=== PATIENT | female | born 1980 | race Caucasian/White ===

== ENCOUNTER 2023-11-29 06:17 | Inpatient (IN) | payer BC ==
[2023-11-29] MEDS ORDERED: OXYTOCIN 10 UNIT/ML 1 ML VIAL IM PRN (07:15)
[2023-11-29] MEDS ORDERED: TERBUTALINE 1 MG/ML VIAL SQ PRN (07:15)
[2023-11-29] MEDS ORDERED: miSOPROStoL 200 MCG TAB PO PRN (07:15)
[2023-11-29] MEDS ORDERED: OXYTOCIN 30 UNITS/500 ML NS 30 UNIT in SALINE 1 500ML.BAG IV SCH ×2 (07:15→14:15)
[2023-11-29] MEDS ORDERED: METHYLERGONOVINE 0.2 MG/ML 1 ML AMP IM PRN (07:15)
[2023-11-29] MEDS ORDERED: LIDOCAINE 0.5% (PF) 5 MG/ML (50 ML SDV) SQ PRN (07:15)
[2023-11-29] MEDS ORDERED: CARBOPROST TROMETHAMINE 250 MCG/ML 1 ML AMP IM PRN (07:15)
[2023-11-29] MEDS ORDERED: TRANEXAMIC 1,000 MG/100ML-NACL 1,000 MG in EMPTY BAG 1 BAG IV PRN (07:15)
[2023-11-29] MEDS: LACTATED RINGERS 1,000 ML IV SCH (07:36)
[2023-11-29 07:56] LABS: Basophils # (A) 0.1 k/uL (0-0.2); Basophils % (A) 1 %; Eosinophils % (A) 1 %; HCT 39.3 % (34.0-46.0); HGB 12.8 gm/dL (11.4-16.0); Lymphocytes # (A) 1.9 k/uL (1.0-4.8); Lymphocytes % (A) 22 %; MCH 31.3 pg (25.0-35.0); MCHC 32.7 g/dL (31.0-37.0); MCV 95.7 fL (80.0-100.0); Mean Platelet Volume 9.7; Monocytes # (A) 0.5 k/uL (0-1.0); Monocytes % (A) 6 %; Neutrophils % (A) 69 %; Platelet Count 155 k/uL (150-450); RBC 4.11 m/uL (3.80-5.40); RDW 13.2 % (11.5-15.5); WBC 8.7 k/uL (3.8-10.6)
[2023-11-29] MEDS: PENICILLIN G POTASSIUM 5,000,000 UNIT in DEXTROSE 5% IN WATER 100 ML IVPB STA (08:10)
[2023-11-29] MEDS ORDERED: NALBUPHINE 10 MG/ML (10 ML MDV) IV PRN (09:21)
--- NOTE | 2023-11-29 09:26 | P.HPOB ---
History of Present Illness H&P Date: 11/29/23 Chief Complaint: 38+ weeks, spontaneous rupture of membranes The patient is a 43-year-old 3 para 2-0-0-2 admitted at 38+ weeks as established by last menstrual period and confirmed by 7-week ultrasound. She is admitted with documented spontaneous rupture of membranes and early labor with all signs reassuring, category 1 heart rate tracing. Her has been essentially uncomplicated. She does fall into the category of advanced maternal age and had negative testing for trisomy. Blood pressures in the office recently have been slightly elevated but home blood pressures and blood pressures she takes at her workplace have been entirely within normal limits. Group B strep status is positive. Obstetrical history: 3 para 2-0-0-2 with 2 term vaginal deliveries without complications. Current statistics are listed in history of present illness. EDC of 12/11/2023 was established by last menstrual period and confirmed by 7-week ultrasound. Laboratory workup demonstrates a blood type of O+ with a negative antibody screen. Rubella status is immune. The remainder of the laboratory workup was within normal limits. Early Glucola was normal as was second trimester Glucola. Group B strep status is positive. Gynecologic history: Unremarkable with no history of any infections to include STDs. Review of Systems Review of systems is confined to history of present illness. Past Medical History Past Medical History: Asthma History of Any Multi-Drug Resistant Organisms: None Reported Past Surgical History: Adenoidectomy Additional Past Surgical History / Comment(s): Hernia repair in 1991. Past Anesthesia/Blood Transfusion Reactions: No Reported Reaction Smoking Status: Never smoker - Past Family History Father Family Medical History: No Reported History Medications and Allergies Home Medications Medication Instructions Recorded Confirmed Type Docusate [Colace] 2 tab PO DAILY 11/29/23 11/29/23 History Montelukast [Singulair] 0.5 tab PO DAILY 11/29/23 11/29/23 History Sertraline [Zoloft] 1 tab PO DAILY 11/29/23 11/29/23 History Allergies Allergy/AdvReac Type Severity Reaction Status Date / Time No Known Allergies Allergy Verified 11/29/23 06:52 Exam Vital Signs Temp Pulse Resp BP Pulse Ox 11/29/23 07:15 97.9 F 82 16 129/83 99 11/29/23 06:51 97.9 F 64 16 129/83 Intake and Output 11/28/23 11/29/23 11/29/23 22:59 06:59 14:59 Other: Weight 68.039 kg In general, this is a well-developed, well-nourished white female in no acute distress. Her heart has a regular rhythm and rate without murmur. Her lungs are clear to auscultation bilaterally in all bailey. Her abdomen is gravid, nondistended, has normal active bowel sounds, soft, nontender, and without any palpable masses aside from uterine fundus. Her extremities without any cyanosis, clubbing, or edema and are nontender to palpation bilaterally. Digital cervical examination demonstrates her cervix to be 3 cm dilated, 70% effaced, with the vertex and presentation of -2 station. Spontaneous rupture of membranes is confirmed. Results Result Diagrams: 11/29/23 07:35 Assessment and Plan (1) Spontaneous rupture of amniotic membranes Current Visit: Yes Status: Acute Code(s): VCT3467 - SNOMED Code(s): 269769767 (2) Group B streptococcal infection in Current Visit: Yes Status: Acute Code(s): O98.819 - OTH MATERNAL INFEC/PARASTC DISEASES COMP PREG, UNSP TRI; B95.1 - STREPTOCOCCUS, GROUP B, CAUSING DISEASES CLASSD [id number] SNOMED Code(s): 682733545 (3) Active labor at term Current Visit: Yes Status: Acute Code(s): ZVL3567 - SNOMED Code(s): 13804693 Plan: Antibiotic prophylaxis has been started for group B strep. We will wait for 4 hours to add any Pitocin augmentation as the patient does have a history of relatively fast labors. She will otherwise have close maternal and surveillance and expectant management will be practiced. She is a good candidate for IV or epidural analgesia, whichever she may choose.
[2023-11-29] MEDS ORDERED: fentaNYL (PF) 50 MCG/ML 5 ML AMP ONE (11:53)
[2023-11-29] MEDS ORDERED: SODIUM CHLORIDE 0.9% 250 ML BAG ONE (11:53)
[2023-11-29] MEDS ORDERED: ROPIVACAINE 5 MG/ML 30 ML VIAL ONE (11:53)
[2023-11-29] MEDS: PENICILLIN G POTASSIUM 2,500,000 UNIT in DEXTROSE 5% IN WATER 100 ML IVPB SCH (12:02)
[2023-11-29] MEDS ORDERED: ROPIVACAINE 225 MG, fentaNYL (PF). 450 MCG in SODIUM CHLORIDE 0.9% 171 ML EPIDURAL ONE (12:32)
[2023-11-29] MEDS ORDERED: SIMETHICONE 80 MG CHEWABLE PO PRN (14:03)
[2023-11-29] MEDS ORDERED: HYDROcodone/APAP 7.5-325MG 1 EACH TAB PO PRN (14:03)
[2023-11-29] MEDS ORDERED: ZOLPIDEM 5 MG TAB PO PRN (14:03)
[2023-11-29] MEDS ORDERED: diphenhydrAMINE 50 MG CAP PO PRN (14:03)
[2023-11-29] MEDS ORDERED: HYDROcodone/APAP 5-325MG 1 EACH TAB PO PRN (14:03)
[2023-11-29] MEDS ORDERED: BENZOCAINE/MENTHOL SPRAY 1 GM/SPRAY AEROSOL TOPICAL PRN (14:03)
[2023-11-29] MEDS ORDERED: HYDROCORTISONE 2.5% RECTAL CREAM 30 GM TUBE RECTAL PRN (14:03)
[2023-11-29] MEDS ORDERED: diphenhydrAMINE 50 MG/ML 1 ML VIAL IVP PRN ×2 (14:03)
[2023-11-29] MEDS ORDERED: LANOLIN CREAM 1 GM TUBE TOPICAL PRN (14:03)
[2023-11-29] MEDS ORDERED: diphenhydrAMINE 25 MG CAP PO PRN (14:03)
--- NOTE | 2023-11-29 14:08 | P.PROBDLV ---
Vaginal Delivery Note - . Vaginal Delivery Note: The patient is a 43-year-old 3 para 2-0-0-2 admitted at 38-2/7 weeks by good dating parameters. She is admitted with documented spontaneous rupture of membranes for clear fluid and early active labor. Her has been entirely uncomplicated aside from some mildly elevated blood pressures in the office over the last 2 weeks which have been normal at home and in her own place of work. She is known to be group B strep positive. As a result, she had an tibiotic prophylaxis started. After 4 hours of antibiotic intervention, Pitocin augmentation was started and she thereafter had an epidural catheter placed for analgesia. She progressed fairly quickly to complete and then pushed over the course of approximately 40 minutes to a normal spontaneous vaginal delivery of a viable 5 pound 10 ounce baby boy with Apgars of 9 at 1 minute and 9 at 5 minutes delivered in the left occiput anterior position. The placenta was delivered spontaneously, intact, and grossly normal with a grossly normal three-vessel cord inserted approximately 2 cm from the margin of the placental disc. There was a small first-degree perineal laceration in the site of a previous laceration or episiotomy repair which was repaired with single [id number] stitch of 3-0 Vicryl. Estimated blood loss for the case was approximately 150 cc. There were no complications. All sponge, instrument, and needle counts were correct. Both mother and infant are resting comfortably in recovery.
[2023-11-29] MEDS: IBUPROFEN 600 MG TAB PO PRN (14:51)
[2023-11-29] MEDS: ACETAMINOPHEN TAB 325 MG TAB PO PRN (17:03)
[2023-11-29] MEDS: SENNOSIDES-DOCUSATE SODIUM 1 EACH TAB PO SCH (21:07)
[2023-11-30 08:18] LABS: Basophils # (A) 0.1 k/uL (0-0.2); Basophils % (A) 1 %; Eosinophils # (A) 0.1 k/uL (0-0.7); Eosinophils % (A) 1 %; HCT 38.6 % (34.0-46.0); HGB 12.2 gm/dL (11.4-16.0); Lymphocytes # (A) 1.6 k/uL (1.0-4.8); Lymphocytes % (A) 14 %; MCH 31.7 pg (25.0-35.0); MCHC 31.7 g/dL (31.0-37.0); MCV 100.1 fL (80.0-100.0); Mean Platelet Volume 9.3; Monocytes # (A) 0.5 k/uL (0-1.0); Monocytes % (A) 4 %; Neutrophils # (A) 8.6 k/uL (1.3-7.7); Neutrophils % (A) 78 %; Platelet Count 142 k/uL (150-450); RBC 3.85 m/uL (3.80-5.40); RDW 13.4 % (11.5-15.5)
--- NOTE | 2023-11-30 08:54 | P.DS ---
Providers Date of admission: 11/29/23 06:50 Expected date of discharge: 11/30/23 Attending physician: Bobby Bravo Primary care physician: Stated None Hospital Course: Ms. Rinaldi is a 43 year old now PPD#1 s/p normal spontaneous vaginal delivery. The patient is doing well this morning and had no acute events overnight. She has no complaints this morning. She reports minimal lochia, passing flatus, voiding without difficulty, ambulating, and eating/drinking without nausea or vomiting. Infant doing well at bedside, s/p circumcision. She denies chest pain, shortness of breathing, fevers, or chills overnight. She denies pain or swelling in the legs. restrictions are reviewed with the patient including pelvic rest for 6 weeks. The patient is encouraged to call the office if she experiences any heavy bleeding, foul-smelling discharge, breast complaints, or any if she has any other concerns. She will follow up in the office with Dr. Bravo in 6 weeks for postoperative exam. All questions are answered. Assessment: 43 year old now PPD#1 s/p Patient Condition at Discharge: Good Plan - Discharge Summary New Discharge Prescriptions: New Ibuprofen [Motrin] 600 mg PO Q6HR PRN #30 tab PRN Reason: Mild Pain (Scale 1 To 3) No Action Montelukast [Singulair] 0.5 tab PO DAILY Sertraline [Zoloft] 1 tab PO DAILY Docusate [Colace] 2 tab PO DAILY Discharge Medication List Docusate [Colace] 2 tab PO DAILY 11/29/23 [History] Montelukast [Singulair] 0.5 tab PO DAILY 11/29/23 [History] Sertraline [Zoloft] 1 tab PO DAILY 11/29/23 [History] Ibuprofen [Motrin] 600 mg PO Q6HR PRN #30 tab 11/30/23 [Rx] Follow up Appointment(s)/Referral(s): Bobby Bravo MD [STAFF PHYSICIAN] - 01/10/24 2:45 pm Activity/Diet/Wound Care/Special Instructions: Instructions 1. Do not begin any exercise program for 3 weeks. 2. Do not resume sexual relations for 6 weeks or longer if uncomfortable. 3. You may take tub baths or showers at any time. 4. You may use tampons if desired after 6 weeks. 5. Keep any areas repaired with stitches clean and dry. 6. If you are not nursing, wear a good fitting, supportive bra during the day and limit fluid intake for at least 1 week to prevent breast engorgement. 7. Call the office, , within the next week to make appointment for your 6 week checkup if it has not already been made. 8. Report any of the following occurrences to the doctor promptly: a. Heavy, excessive bleeding b. Chills, fever c. Burning or frequency of urination d. Pain or redness and breasts if nursing e. Increasing pain or swelling of vulva (stitches). In addition to the above instructions, the following additional should be followed: 1. No heavy lifting or straining (exercising) until after 6 week checkup. 2. Keep abdominal incision clean and dry: You may wear a dressing if more comfortable. 3. Make office appointment for 2 weeks after delivery date. Discharge Disposition: HOME SELF-CARE
[2023-11-30 09:11] VITALS: BP 113/72; PULSE 75; RESP 14; TEMP 97.7
== END 2023-11-30 15:00 | disposition home or self-care (01) | DRG 807 ==
LOC: FBPOP 06:17 → 4FBP 06:50
PROVIDERS: ADMIT Obstetrics & Gynecology; ATTEND Obstetrics & Gynecology
PROC: 10E0XZZ Delivery of Products of Conception, External Approach (ICD-10-PCS; principal; 2023-11-29)
DX: O98.82 Other maternal infectious and parasitic diseases complicating childbirth (principal); Z37.0 Single live birth; O99.52 Diseases of the respiratory system complicating childbirth; O99.824 Streptococcus B carrier state complicating childbirth; O26.893 Other specified pregnancy related conditions, third trimester; J45.909 Unspecified asthma, uncomplicated; B95.1 Streptococcus, group B, as the cause of diseases classified elsewhere; Z3A.38 38 weeks gestation of pregnancy
CPT/HCPCS: 85025; 86850; 86900; 86901